=== PATIENT | male | born 1960 | race African-American/Black ===

== ENCOUNTER 2018-01-26 15:55 | Inpatient (IN) ==
[2018-01-26] MEDS ORDERED: methylPREDNISolone SOD SUC 125 MG/2 ML VIAL IV STA (18:03)
[2018-01-26] MEDS ORDERED: AMPICILLIN/SULBACTAM 3,000 MG in SODIUM CHLORIDE 0.9% 100 ML IV STA (18:03)
[2018-01-26] MEDS ORDERED: LEVOFLOXACIN INJ 750 MG in PREMIX 1 EACH IV STA (18:04)
[2018-01-26 18:43] LABS: Basophils % 0.2 % (0.0-0.8); Eosinophils # 0.1 10*3/uL (0.0-0.87); Hematocrit 35.8 VOL% (42.0-52.0); Hemoglobin 10.8 GM/DL (14.0-18.0); Immature Granulocytes % 0.5 %; Immature Granulocytes Absolute 0.05 #; Lymphocytes # 0.5 10*3/uL (1.4-4.0); Lymphocytes % 4.6 % (21.2-54.2); Mean Corpuscular HGB Conc 30.2 GM/DL (32-36); Mean Corpuscular Hemoglobin 25 PG (27-34); Mean Corpuscular Volume 81.5 FL (87-102); Monocytes # 1.6 10*3/uL (0.11-0.8); Monocytes % 14.6 % (1.7-12.7); Neutrophils # 8.4 10*3/uL (1.4-7.4); Neutrophils % 79.1 % (38.7-73.9); Platelet Count 280 T/CUMM (130-400); Red Blood Count 4.39 MC/CUMM (3.8-5.5); Red Cell Distribution Width 18.6 % (9.3-17.3); White Blood Count 10.6 T/CUMM (4-12)
[2018-01-26 18:54] LABS: INR 1.2; PT Patient Result 12.3 SECS; Partial Thromboplastin Time 36.1 SECS (0-40)
[2018-01-26 19:05] LABS: Alanine Aminotransferase < 6 U/L (16-61); Albumin 2.1 G/DL (3.4-5.0); Alkaline Phosphatase 98 U/L (45-117); Aspartate Amino Transferase 6 U/L (0-37); Bilirubin,Total < 0.39 MG/DL (0.2-1.0); Blood Urea Nitrogen 57 MG/DL (7-18); Calcium 8.5 MG/DL (8.5-10.1); Glucose 109 MG/DL (74-106); Osmolality,Calculated 280.5 MOS/KG (273-304); Potassium 4.2 MMOL/L (3.5-5.1); Sodium 132 MMOL/L (136-145); Total Protein 9.5 G/DL (6.4-8.3); Troponin I Only < 0.015 NG/ML (0.00-0.045)
[2018-01-26 19:19] LABS: Ammonia 31 UMOL/L (11-32)
[2018-01-26 20:35] LABS: Hypochromasia 2+; Lymphocytes 8 % (20-55); Platelet Estimate Normal; Segmented Neutrophils 82 % (50-85); Total Cells Counted 100
[2018-01-26] MEDS ORDERED: GLUCAGON 1 MG VIAL IM PRN (20:59)
[2018-01-26] MEDS ORDERED: DEXTROSE 50% 25 GM/50 ML VIAL IV PRN (20:59)
[2018-01-26] MEDS ORDERED: hydrALAZINE 20 MG/1 ML VIAL IV PRN (21:01)
[2018-01-26] MEDS: HEPARIN 5,000 UNIT/1 ML VIAL SUBCUT SCH (23:35)
[2018-01-26] MEDS: PANTOPRAZOLE 40 MG VIAL IV SCH (23:36)
[2018-01-27] MEDS: ALBUTEROL/IPRATROPIUM 3 ML NEB RESP TX SCH ×4 (00:32→19:21)
[2018-01-27] MEDS: INSULIN LISPRO 100 UNIT/ML SUBCUT SCH ×4 (00:32→18:10)
[2018-01-27] MEDS: HEPARIN 5,000 UNIT/1 ML VIAL SUBCUT SCH ×3 (06:17→20:53)
[2018-01-27 06:56] LABS: Apearance,Urine CLOUDY (Clear); Bacteria,Urine Occasional /HPF (Few); Bilirubin,Urine Negative (Negative); Blood, Urine Small mg/dL (Negative); Glucose,Urine (UA) 50 mg/dL (Negative); Ketones,Urine Negative (Negative); Nitrite,Urine Negative (Negative); Protein,Urine 100 MG/DL; RBC,Urine 2 /HPF (0-4); Urine Color Amber (Yellow); Urine Urobilinogen < 2.0 EU/DL (0.2-1.0); WBC,Urine 1 /HPF (0-6)
[2018-01-27 07:01] LABS: Basophils % 0.1 % (0.0-0.8); Hematocrit 34.3 VOL% (42.0-52.0); Hemoglobin 10.6 GM/DL (14.0-18.0); Immature Granulocytes % 0.4 %; Immature Granulocytes Absolute 0.04 #; Lymphocytes # 0.3 10*3/uL (1.4-4.0); Mean Corpuscular HGB Conc 30.9 GM/DL (32-36); Mean Corpuscular Hemoglobin 25 PG (27-34); Mean Corpuscular Volume 80.7 FL (87-102); Mean Platelet Volume 10.4 FL (9.6-12.0); Monocytes # 0.1 10*3/uL (0.11-0.8); Monocytes % 0.8 % (1.7-12.7); Neutrophils # 9.9 10*3/uL (1.4-7.4); Neutrophils % 95.7 % (38.7-73.9); Platelet Count 293 T/CUMM (130-400); Red Blood Count 4.25 MC/CUMM (3.8-5.5); Red Cell Distribution Width 18.6 % (9.3-17.3); White Blood Count 10.3 T/CUMM (4-12)
[2018-01-27 07:22] LABS: Hypochromasia 1+; Lymphocytes 5 % (20-55); Platelet Estimate Adequate; Segmented Neutrophils 95 % (50-85); Total Cells Counted 100
[2018-01-27 07:24] LABS: Calcium 9.1 MG/DL (8.5-10.1); Osmolality,Calculated 283.7 MOS/KG (273-304); Potassium 5.1 MMOL/L (3.5-5.1)
[2018-01-27] MEDS: CLINDAMYCIN INJ 300 MG in PREMIX 1 EACH IV SCH ×3 (07:28→14:11)
[2018-01-27] MEDS: PANTOPRAZOLE 40 MG VIAL IV SCH ×2 (08:27→20:53)
[2018-01-27] MEDS ORDERED: HEPARIN 10,000 UNIT/10 ML VIAL IV SCH ×2 (12:30→14:30)
[2018-01-27] MEDS ORDERED: LEVOFLOXACIN INJ 250 MG in PREMIX 1 EACH IV SCH (21:00)
[2018-01-28] MEDS: ALBUTEROL/IPRATROPIUM 3 ML NEB RESP TX SCH ×4 (00:34→20:01)
[2018-01-28] MEDS: INSULIN LISPRO 100 UNIT/ML SUBCUT SCH ×4 (00:45→17:54)
[2018-01-28] MEDS: HEPARIN 5,000 UNIT/1 ML VIAL SUBCUT SCH ×3 (05:24→21:07)
[2018-01-28 06:33] LABS: Hematocrit 33.2 VOL% (42.0-52.0); Hemoglobin 10.3 GM/DL (14.0-18.0); Immature Granulocytes % 0.4 %; Immature Granulocytes Absolute 0.04 #; Lymphocytes # 0.7 10*3/uL (1.4-4.0); Lymphocytes % 7.3 % (21.2-54.2); Mean Corpuscular Hemoglobin 25 PG (27-34); Mean Corpuscular Volume 80.4 FL (87-102); Monocytes # 1.1 10*3/uL (0.11-0.8); Monocytes % 12.7 % (1.7-12.7); Neutrophils # 7.1 10*3/uL (1.4-7.4); Neutrophils % 79.6 % (38.7-73.9); Platelet Count 311 T/CUMM (130-400); Red Blood Count 4.13 MC/CUMM (3.8-5.5); Red Cell Distribution Width 18.5 % (9.3-17.3); White Blood Count 8.9 T/CUMM (4-12)
[2018-01-28] MEDS ORDERED: VANCOMYCIN INJ 1,250 MG in SODIUM CHLORIDE 0.9% 250 ML IV PRN (08:29)
[2018-01-28] MEDS: PANTOPRAZOLE 40 MG VIAL IV SCH (08:49)
[2018-01-28 09:11] LABS: Calcium 9.3 MG/DL (8.5-10.1); Osmolality,Calculated 287.5 MOS/KG (273-304); Potassium 4.8 MMOL/L (3.5-5.1)
[2018-01-28] MEDS ORDERED: ACETAMINOPHEN 325 MG TABLET PO PRN (10:42)
[2018-01-28] MEDS ORDERED: diphenhydrAMINE CAP 25 MG CAPSULE PO PRN (11:00)
[2018-01-28] MEDS ORDERED: HEPARIN 10,000 UNIT/10 ML VIAL IV SCH (12:00)
[2018-01-28] MEDS ORDERED: ceFAZolin 1,000 MG VIAL IV SCH (12:00)
[2018-01-28] MEDS ORDERED: ceFAZolin 2,000 MG in PREMIX 1 EACH IV SCH (12:00)
[2018-01-28] MEDS: amLODIPine 10 MG TABLET PO SCH (13:33)
[2018-01-28] MEDS: MINOXIDIL 2.5 MG TABLET PO SCH ×2 (13:33→21:07)
[2018-01-28] MEDS: ESCITALOPRAM 10 MG TABLET PO SCH (13:34)
[2018-01-28] MEDS: FERROUS SULFATE 325 MG TABLET PO SCH (13:34)
[2018-01-28] MEDS: GABAPENTIN 300 MG CAPSULE PO SCH ×2 (13:34→21:07)
[2018-01-28] MEDS: DIVALPROEX 250 MG TABLET PO SCH ×2 (13:35→21:07)
[2018-01-28] MEDS: HEPARIN IV SCH ×2 (13:36→14:30)
[2018-01-28] MEDS: CEFAZOLIN IV SCH ×2 (13:36→14:30)
[2018-01-28] MEDS: NAFCILLIN 2,000 MG in SODIUM CHLORIDE 0.9% 100 ML IV SCH (19:43)
[2018-01-29] MEDS: NAFCILLIN 2,000 MG in SODIUM CHLORIDE 0.9% 100 ML IV SCH ×6 (00:15→20:57)
[2018-01-29] MEDS: ALBUTEROL/IPRATROPIUM 3 ML NEB RESP TX SCH ×5 (00:22→23:40)
[2018-01-29] MEDS: INSULIN LISPRO 100 UNIT/ML SUBCUT SCH ×4 (00:32→18:34)
[2018-01-29] MEDS: HEPARIN 5,000 UNIT/1 ML VIAL SUBCUT SCH ×3 (04:54→20:58)
[2018-01-29] MEDS: ESCITALOPRAM 10 MG TABLET PO SCH (08:47)
[2018-01-29] MEDS: PANTOPRAZOLE 40 MG TABLET PO SCH (08:47)
[2018-01-29] MEDS: DOCUSATE SODIUM 100 MG CAPSULE PO SCH (08:47)
[2018-01-29] MEDS: amLODIPine 10 MG TABLET PO SCH (08:47)
[2018-01-29] MEDS: DIVALPROEX 250 MG TABLET PO SCH ×2 (08:47→20:59)
[2018-01-29] MEDS: MINOXIDIL 2.5 MG TABLET PO SCH ×2 (08:47→20:58)
[2018-01-29] MEDS: MULTIVITAMIN (CENTRUM) TABLET PO SCH (08:47)
[2018-01-29] MEDS: FERROUS SULFATE 325 MG TABLET PO SCH (08:47)
[2018-01-29] MEDS: GABAPENTIN 300 MG CAPSULE PO SCH ×2 (08:47→20:59)
[2018-01-29] MEDS ORDERED: HEPARIN IV ONE (16:00)
[2018-01-29] MEDS ORDERED: CEFAZOLIN IV ONE (16:00)
[2018-01-30] MEDS: NAFCILLIN 2,000 MG in SODIUM CHLORIDE 0.9% 100 ML IV SCH ×6 (00:48→20:58)
[2018-01-30] MEDS: INSULIN LISPRO 100 UNIT/ML SUBCUT SCH ×4 (00:52→18:42)
[2018-01-30] MEDS: HEPARIN 5,000 UNIT/1 ML VIAL SUBCUT SCH ×2 (05:31→13:08)
[2018-01-30] MEDS: ALBUTEROL/IPRATROPIUM 3 ML NEB RESP TX SCH ×3 (08:26→18:55)
[2018-01-30] MEDS: GABAPENTIN 300 MG CAPSULE PO SCH ×2 (08:44→21:53)
[2018-01-30] MEDS: DOCUSATE SODIUM 100 MG CAPSULE PO SCH (08:44)
[2018-01-30] MEDS: PANTOPRAZOLE 40 MG TABLET PO SCH (08:44)
[2018-01-30] MEDS: DIVALPROEX 250 MG TABLET PO SCH ×2 (08:44→21:53)
[2018-01-30] MEDS: MULTIVITAMIN (CENTRUM) TABLET PO SCH (08:45)
[2018-01-30] MEDS: amLODIPine 10 MG TABLET PO SCH (08:45)
[2018-01-30] MEDS: FERROUS SULFATE 325 MG TABLET PO SCH (08:45)
[2018-01-30] MEDS: MINOXIDIL 2.5 MG TABLET PO SCH ×2 (08:45→21:53)
[2018-01-30] MEDS: ESCITALOPRAM 10 MG TABLET PO SCH (08:52)
[2018-01-31] MEDS: INSULIN LISPRO 100 UNIT/ML SUBCUT SCH ×4 (00:02→18:01)
[2018-01-31] MEDS: HEPARIN 5,000 UNIT/1 ML VIAL SUBCUT SCH ×4 (00:28→20:13)
[2018-01-31] MEDS: NAFCILLIN 2,000 MG in SODIUM CHLORIDE 0.9% 100 ML IV SCH ×8 (00:55→20:55)
[2018-01-31] MEDS: ALBUTEROL/IPRATROPIUM 3 ML NEB RESP TX SCH ×4 (06:48→19:02)
[2018-01-31] MEDS: CEFAZOLIN IV SCH (07:46)
[2018-01-31] MEDS: HEPARIN IV SCH (07:46)
[2018-01-31] MEDS: MULTIVITAMIN (CENTRUM) TABLET PO SCH (08:54)
[2018-01-31] MEDS: GABAPENTIN 300 MG CAPSULE PO SCH ×2 (08:55→20:13)
[2018-01-31] MEDS: MINOXIDIL 2.5 MG TABLET PO SCH ×2 (08:55→20:13)
[2018-01-31] MEDS: FERROUS SULFATE 325 MG TABLET PO SCH (08:55)
[2018-01-31] MEDS: DIVALPROEX 250 MG TABLET PO SCH ×2 (08:55→20:13)
[2018-01-31] MEDS: DOCUSATE SODIUM 100 MG CAPSULE PO SCH (08:55)
[2018-01-31] MEDS: ESCITALOPRAM 10 MG TABLET PO SCH (08:55)
[2018-01-31] MEDS: PANTOPRAZOLE 40 MG TABLET PO SCH (08:56)
[2018-01-31] MEDS: amLODIPine 10 MG TABLET PO SCH (08:56)
[2018-02-01] MEDS: ALBUTEROL/IPRATROPIUM 3 ML NEB RESP TX SCH ×4 (00:34→18:50)
[2018-02-01] MEDS: NAFCILLIN 2,000 MG in SODIUM CHLORIDE 0.9% 100 ML IV SCH ×6 (00:37→22:31)
[2018-02-01] MEDS: INSULIN LISPRO 100 UNIT/ML SUBCUT SCH ×4 (00:51→18:10)
[2018-02-01] MEDS: HEPARIN 5,000 UNIT/1 ML VIAL SUBCUT SCH ×3 (04:34→21:04)
[2018-02-01 08:18] LABS: Basophils % 0.2 % (0.0-0.8); Eosinophils # 0.2 10*3/uL (0.0-0.87); Eosinophils % 1.9 % (0.00-10.9); Hematocrit 31.9 VOL% (42.0-52.0); Hemoglobin 9.5 GM/DL (14.0-18.0); Immature Granulocytes % 0.5 %; Immature Granulocytes Absolute 0.05 #; Lymphocytes # 0.9 10*3/uL (1.4-4.0); Lymphocytes % 10.3 % (21.2-54.2); Mean Corpuscular HGB Conc 29.8 GM/DL (32-36); Mean Corpuscular Hemoglobin 24 PG (27-34); Mean Platelet Volume 9.7 FL (9.6-12.0); Monocytes # 1.4 10*3/uL (0.11-0.8); Monocytes % 14.9 % (1.7-12.7); Neutrophils # 6.6 10*3/uL (1.4-7.4); Neutrophils % 72.2 % (38.7-73.9); Platelet Count 351 T/CUMM (130-400); Red Blood Count 3.94 MC/CUMM (3.8-5.5); Red Cell Distribution Width 18.3 % (9.3-17.3); White Blood Count 9.1 T/CUMM (4-12)
[2018-02-01 08:50] LABS: Calcium 9.1 MG/DL (8.5-10.1); Osmolality,Calculated 285.5 MOS/KG (273-304); Potassium 5.1 MMOL/L (3.5-5.1)
[2018-02-01] MEDS: MULTIVITAMIN (CENTRUM) TABLET PO SCH (09:30)
[2018-02-01] MEDS: amLODIPine 10 MG TABLET PO SCH (09:31)
[2018-02-01] MEDS: MINOXIDIL 2.5 MG TABLET PO SCH ×2 (09:31→21:03)
[2018-02-01] MEDS: FERROUS SULFATE 325 MG TABLET PO SCH (09:32)
[2018-02-01] MEDS: DIVALPROEX 250 MG TABLET PO SCH ×2 (09:32→21:03)
[2018-02-01] MEDS: GABAPENTIN 300 MG CAPSULE PO SCH ×2 (09:32→21:05)
[2018-02-01] MEDS: PANTOPRAZOLE 40 MG TABLET PO SCH (09:32)
[2018-02-01] MEDS: ESCITALOPRAM 10 MG TABLET PO SCH (09:32)
[2018-02-01] MEDS: DOCUSATE SODIUM 100 MG CAPSULE PO SCH (09:32)
[2018-02-01] MEDS ORDERED: ZIPRASIDONE 20 MG/1 ML VIAL IM PRN (23:53)
[2018-02-02] MEDS: ALBUTEROL/IPRATROPIUM 3 ML NEB RESP TX SCH ×4 (00:20→19:38)
[2018-02-02] MEDS: NAFCILLIN 2,000 MG in SODIUM CHLORIDE 0.9% 100 ML IV SCH ×6 (01:54→21:11)
[2018-02-02] MEDS: INSULIN LISPRO 100 UNIT/ML SUBCUT SCH ×4 (01:58→18:34)
[2018-02-02] MEDS: HEPARIN 5,000 UNIT/1 ML VIAL SUBCUT SCH ×3 (06:53→21:11)
[2018-02-02] MEDS: MINOXIDIL 2.5 MG TABLET PO SCH ×2 (09:00→21:05)
[2018-02-02] MEDS: FERROUS SULFATE 325 MG TABLET PO SCH (09:00)
[2018-02-02] MEDS: MULTIVITAMIN (CENTRUM) TABLET PO SCH (09:00)
[2018-02-02] MEDS: DOCUSATE SODIUM 100 MG CAPSULE PO SCH (09:01)
[2018-02-02] MEDS: GABAPENTIN 300 MG CAPSULE PO SCH ×2 (09:01→21:05)
[2018-02-02] MEDS: PANTOPRAZOLE 40 MG TABLET PO SCH (09:02)
[2018-02-02] MEDS: DIVALPROEX 250 MG TABLET PO SCH ×2 (09:02→21:11)
[2018-02-02] MEDS: ESCITALOPRAM 10 MG TABLET PO SCH (09:02)
[2018-02-02] MEDS: amLODIPine 10 MG TABLET PO SCH (09:10)
[2018-02-02 09:21] LABS: Basophils % 0.3 % (0.0-0.8); Eosinophils # 0.2 10*3/uL (0.0-0.87); Eosinophils % 1.7 % (0.00-10.9); Hematocrit 32.3 VOL% (42.0-52.0); Hemoglobin 9.9 GM/DL (14.0-18.0); Immature Granulocytes % 0.5 %; Immature Granulocytes Absolute 0.06 #; Lymphocytes # 0.8 10*3/uL (1.4-4.0); Mean Corpuscular HGB Conc 30.7 GM/DL (32-36); Mean Corpuscular Hemoglobin 25 PG (27-34); Mean Corpuscular Volume 81.4 FL (87-102); Mean Platelet Volume 9.2 FL (9.6-12.0); Monocytes # 1.4 10*3/uL (0.11-0.8); Monocytes % 12.1 % (1.7-12.7); Neutrophils # 8.8 10*3/uL (1.4-7.4); Neutrophils % 78.4 % (38.7-73.9); Platelet Count 365 T/CUMM (130-400); Red Blood Count 3.97 MC/CUMM (3.8-5.5); Red Cell Distribution Width 18.5 % (9.3-17.3); White Blood Count 11.2 T/CUMM (4-12)
[2018-02-02 09:46] LABS: Calcium 9.5 MG/DL (8.5-10.1); Osmolality,Calculated 284.2 MOS/KG (273-304); Potassium 4.4 MMOL/L (3.5-5.1)
[2018-02-02] MEDS ORDERED: CEFAZOLIN IV SCH (12:00)
[2018-02-02] MEDS ORDERED: HEPARIN IV SCH (12:00)
[2018-02-03] MEDS: NAFCILLIN 2,000 MG in SODIUM CHLORIDE 0.9% 100 ML IV SCH ×6 (01:01→20:08)
[2018-02-03] MEDS: INSULIN LISPRO 100 UNIT/ML SUBCUT SCH ×4 (01:02→17:46)
[2018-02-03] MEDS: HEPARIN 5,000 UNIT/1 ML VIAL SUBCUT SCH ×3 (05:19→21:06)
[2018-02-03 06:14] LABS: Calcium 9.4 MG/DL (8.5-10.1); Osmolality,Calculated 286.7 MOS/KG (273-304); Potassium 4.6 MMOL/L (3.5-5.1)
[2018-02-03] MEDS: ALBUTEROL/IPRATROPIUM 3 ML NEB RESP TX SCH ×4 (06:47→19:27)
[2018-02-03] MEDS: MINOXIDIL 2.5 MG TABLET PO SCH ×2 (09:30→21:06)
[2018-02-03] MEDS: ESCITALOPRAM 10 MG TABLET PO SCH (09:30)
[2018-02-03] MEDS: GABAPENTIN 300 MG CAPSULE PO SCH ×2 (09:30→21:06)
[2018-02-03] MEDS: DOCUSATE SODIUM 100 MG CAPSULE PO SCH (09:30)
[2018-02-03] MEDS: DIVALPROEX 250 MG TABLET PO SCH ×2 (09:30→21:06)
[2018-02-03] MEDS: PANTOPRAZOLE 40 MG TABLET PO SCH (09:30)
[2018-02-03] MEDS: MULTIVITAMIN (CENTRUM) TABLET PO SCH (09:30)
[2018-02-03] MEDS: FERROUS SULFATE 325 MG TABLET PO SCH (09:30)
[2018-02-03] MEDS: amLODIPine 10 MG TABLET PO SCH (09:40)
[2018-02-04] MEDS: NAFCILLIN 2,000 MG in SODIUM CHLORIDE 0.9% 100 ML IV SCH ×6 (00:20→20:30)
[2018-02-04] MEDS: INSULIN LISPRO 100 UNIT/ML SUBCUT SCH ×5 (00:31→22:59)
[2018-02-04] MEDS: ALBUTEROL/IPRATROPIUM 3 ML NEB RESP TX SCH ×4 (01:31→19:07)
[2018-02-04] MEDS: HEPARIN 5,000 UNIT/1 ML VIAL SUBCUT SCH ×3 (04:47→21:54)
[2018-02-04 05:59] LABS: Basophils % 0.4 % (0.0-0.8); Eosinophils # 0.3 10*3/uL (0.0-0.87); Eosinophils % 3.3 % (0.00-10.9); Hematocrit 31.8 VOL% (42.0-52.0); Immature Granulocytes % 0.6 %; Immature Granulocytes Absolute 0.05 #; Lymphocytes # 0.9 10*3/uL (1.4-4.0); Lymphocytes % 11.3 % (21.2-54.2); Mean Corpuscular HGB Conc 31.4 GM/DL (32-36); Mean Corpuscular Hemoglobin 25 PG (27-34); Mean Corpuscular Volume 78.7 FL (87-102); Mean Platelet Volume 9.5 FL (9.6-12.0); Monocytes % 11.9 % (1.7-12.7); Neutrophils % 72.5 % (38.7-73.9); Platelet Count 354 T/CUMM (130-400); Red Blood Count 4.04 MC/CUMM (3.8-5.5); Red Cell Distribution Width 18.2 % (9.3-17.3); White Blood Count 8.2 T/CUMM (4-12)
[2018-02-04 08:21] LABS: Calcium 9.1 MG/DL (8.5-10.1); Osmolality,Calculated 288.4 MOS/KG (273-304); Potassium 5.6 MMOL/L (3.5-5.1)
[2018-02-04] MEDS: MINOXIDIL 2.5 MG TABLET PO SCH ×2 (10:21→21:54)
[2018-02-04] MEDS: FERROUS SULFATE 325 MG TABLET PO SCH (10:21)
[2018-02-04] MEDS: ESCITALOPRAM 10 MG TABLET PO SCH (10:21)
[2018-02-04] MEDS: amLODIPine 10 MG TABLET PO SCH (10:21)
[2018-02-04] MEDS: DOCUSATE SODIUM 100 MG CAPSULE PO SCH (10:21)
[2018-02-04] MEDS: GABAPENTIN 300 MG CAPSULE PO SCH ×2 (10:21→21:54)
[2018-02-04] MEDS: MULTIVITAMIN (CENTRUM) TABLET PO SCH (10:22)
[2018-02-04] MEDS: DIVALPROEX 250 MG TABLET PO SCH ×2 (10:22→21:53)
[2018-02-04] MEDS: PANTOPRAZOLE 40 MG TABLET PO SCH (10:22)
[2018-02-04] MEDS ORDERED: SODIUM POLYSTYRENE SULFATE 15 GM/60 ML BOTTLE PO STA (14:11)
[2018-02-05] MEDS: ALBUTEROL/IPRATROPIUM 3 ML NEB RESP TX SCH ×4 (00:08→19:18)
[2018-02-05] MEDS: NAFCILLIN 2,000 MG in SODIUM CHLORIDE 0.9% 100 ML IV SCH ×3 (00:49→08:43)
[2018-02-05] MEDS: MORPHINE 4 MG/1 ML VIAL IV PRN (02:33)
[2018-02-05] MEDS: HEPARIN 5,000 UNIT/1 ML VIAL SUBCUT SCH ×3 (04:50→21:04)
[2018-02-05] MEDS: INSULIN LISPRO 100 UNIT/ML SUBCUT SCH ×3 (05:48→19:13)
[2018-02-05] MEDS: DOCUSATE SODIUM 100 MG CAPSULE PO SCH (08:45)
[2018-02-05] MEDS: MULTIVITAMIN (CENTRUM) TABLET PO SCH (08:45)
[2018-02-05] MEDS: FERROUS SULFATE 325 MG TABLET PO SCH (08:46)
[2018-02-05] MEDS: ESCITALOPRAM 10 MG TABLET PO SCH (08:46)
[2018-02-05] MEDS: GABAPENTIN 300 MG CAPSULE PO SCH ×2 (08:46→21:02)
[2018-02-05] MEDS: DIVALPROEX 250 MG TABLET PO SCH ×2 (08:46→21:03)
[2018-02-05] MEDS: MINOXIDIL 2.5 MG TABLET PO SCH ×2 (08:46→21:03)
[2018-02-05] MEDS: amLODIPine 10 MG TABLET PO SCH (08:46)
[2018-02-05] MEDS: PANTOPRAZOLE 40 MG TABLET PO SCH (08:47)
[2018-02-05] MEDS ORDERED: LIDOCAINE 1%/EPI INJ 20 ML VIAL ONE (11:56)
[2018-02-05] MEDS ORDERED: HEPARIN 5,000 UNIT/1 ML VIAL ONE (11:56)
[2018-02-05] MEDS ORDERED: BUPIVACAINE MPF 0.25% 30 ML VIAL ONE (11:56)
[2018-02-05] MEDS ORDERED: PROPOFOL 200 MG/20 ML VIAL IV ONE (13:05)
[2018-02-05] MEDS ORDERED: ETOMIDATE 40 MG/20 ML VIAL IV ONE (13:06)
[2018-02-05] MEDS ORDERED: ceFAZolin 2,000 MG in PREMIX 1 EACH IV ONE (14:00)
[2018-02-05] MEDS: SODIUM CHLORIDE 0.9% 250 ML IV SCH (17:54)
[2018-02-06] MEDS: ALBUTEROL/IPRATROPIUM 3 ML NEB RESP TX SCH ×4 (00:03→19:17)
[2018-02-06] MEDS: INSULIN LISPRO 100 UNIT/ML SUBCUT SCH ×4 (00:31→17:33)
[2018-02-06] MEDS: SODIUM CHLORIDE 0.9% 250 ML IV SCH ×2 (01:20→17:11)
[2018-02-06] MEDS: HEPARIN 5,000 UNIT/1 ML VIAL SUBCUT SCH ×3 (05:18→21:13)
[2018-02-06] MEDS: DIVALPROEX 250 MG TABLET PO SCH ×2 (08:24→21:12)
[2018-02-06] MEDS: amLODIPine 10 MG TABLET PO SCH (08:24)
[2018-02-06] MEDS: MULTIVITAMIN (CENTRUM) TABLET PO SCH (08:24)
[2018-02-06] MEDS: ESCITALOPRAM 10 MG TABLET PO SCH (08:24)
[2018-02-06] MEDS: busPIRone 5 MG TABLET PO PRN (08:24)
[2018-02-06] MEDS: DOCUSATE SODIUM 100 MG CAPSULE PO SCH (08:25)
[2018-02-06] MEDS: GABAPENTIN 300 MG CAPSULE PO SCH ×2 (08:25→21:12)
[2018-02-06] MEDS: MINOXIDIL 2.5 MG TABLET PO SCH ×2 (08:25→21:12)
[2018-02-06] MEDS: PANTOPRAZOLE 40 MG TABLET PO SCH (08:25)
[2018-02-06] MEDS: FERROUS SULFATE 325 MG TABLET PO SCH (08:25)
[2018-02-07] MEDS: INSULIN LISPRO 100 UNIT/ML SUBCUT SCH ×3 (01:16→13:21)
[2018-02-07] MEDS: ALBUTEROL/IPRATROPIUM 3 ML NEB RESP TX SCH ×2 (01:25→07:41)
[2018-02-07] MEDS: SODIUM CHLORIDE 0.9% 250 ML IV SCH (02:05)
[2018-02-07] MEDS: MORPHINE 4 MG/1 ML VIAL IV PRN (03:30)
[2018-02-07] MEDS: HEPARIN 5,000 UNIT/1 ML VIAL SUBCUT SCH (05:03)
[2018-02-07 05:15] LABS: Basophils % 0.4 % (0.0-0.8); Eosinophils # 0.1 10*3/uL (0.0-0.87); Eosinophils % 1.4 % (0.00-10.9); Hematocrit 31.8 VOL% (42.0-52.0); Hemoglobin 9.6 GM/DL (14.0-18.0); Immature Granulocytes % 0.5 %; Immature Granulocytes Absolute 0.04 #; Lymphocytes # 0.7 10*3/uL (1.4-4.0); Lymphocytes % 8.9 % (21.2-54.2); Mean Corpuscular HGB Conc 30.2 GM/DL (32-36); Mean Corpuscular Hemoglobin 24 PG (27-34); Mean Corpuscular Volume 80.9 FL (87-102); Mean Platelet Volume 9.7 FL (9.6-12.0); Monocytes # 1.1 10*3/uL (0.11-0.8); Monocytes % 14.3 % (1.7-12.7); Neutrophils # 5.9 10*3/uL (1.4-7.4); Neutrophils % 74.5 % (38.7-73.9); Platelet Count 315 T/CUMM (130-400); Red Blood Count 3.93 MC/CUMM (3.8-5.5); Red Cell Distribution Width 17.9 % (9.3-17.3)
[2018-02-07 05:47] LABS: Calcium 9.3 MG/DL (8.5-10.1); Osmolality,Calculated 272.7 MOS/KG (273-304)
[2018-02-07] MEDS: ESCITALOPRAM 10 MG TABLET PO SCH (10:01)
[2018-02-07] MEDS: MULTIVITAMIN (CENTRUM) TABLET PO SCH (10:01)
[2018-02-07] MEDS: GABAPENTIN 300 MG CAPSULE PO SCH (10:02)
[2018-02-07] MEDS: DIVALPROEX 250 MG TABLET PO SCH (10:02)
[2018-02-07] MEDS: FERROUS SULFATE 325 MG TABLET PO SCH (10:02)
[2018-02-07] MEDS: DOCUSATE SODIUM 100 MG CAPSULE PO SCH (10:02)
[2018-02-07] MEDS: PANTOPRAZOLE 40 MG TABLET PO SCH (10:02)
[2018-02-07] MEDS: busPIRone 5 MG TABLET PO PRN (10:02)
[2018-02-07] MEDS: MINOXIDIL 2.5 MG TABLET PO SCH (10:02)
[2018-02-07] MEDS: amLODIPine 10 MG TABLET PO SCH (10:02)
[2018-02-07 11:48] VITALS: BP 135/65
[2018-02-09] MEDS ORDERED: ceFAZolin 2,000 MG in PREMIX 1 EACH IV SCH (12:00)
== END 2018-02-07 14:00 | DRG 314 ==
LOC: EDUNIT# → EDBD → N.ED 15:55 → SUATTDRO 20:52 → N.EDINP 20:53 → N.2E 21:31
PROVIDERS: ADMIT Internal Medicine; ATTEND Internal Medicine